=== PATIENT | female | born 1980 | race Hispanic/Latino ===

== ENCOUNTER 2020-07-09 21:45 | Emergency (ER) | payer SELFPAY ==
[2020-07-09 23:27] LABS: Basophils % (Auto) 0.5 % (0.0-1.8); Hemoglobin 12.8 gm/dl (10.1-14.3); Lymphocytes # (Auto) 1.1 K/mm3 (1.2-5.4); Lymphocytes % (Auto) 16.7 % (13.4-35.0); Mean Corpuscular HGB Conc 34 % (30-34); Mean Corpuscular Volume 91 fl (79-97); Monocytes # (Auto) 0.7 K/mm3 (0.0-0.8); Monocytes % (Auto) 10.8 % (0.0-7.3); Platelet Count 263 K/mm3 (140-440); Red Blood Count 4.19 M/mm3 (3.65-5.03); Red Cell Distribution Width 13.7 % (13.2-15.2)
[2020-07-09 23:54] LABS: Alanine Aminotransferase 293 units/L (7-56); Albumin 3.6 g/dL (3.9-5); Blood Urea Nitrogen 22 mg/dL (7-17); Hemolysis Index 6
[2020-07-09 23:59] LABS: BUN/Creatinine Ratio 55
--- NOTE | 2020-07-10 00:30 | XRay Report ---
CHEST 2 VIEWS INDICATION / CLINICAL INFORMATION: Chest pain. COMPARISON: None available. FINDINGS: SUPPORT DEVICES: None. HEART / MEDIASTINUM: The heart size and pulmonary vasculature are normal. The aorta is normal in ashok luis miguel. LUNGS / PLEURA: No significant pulmonary or pleural abnormality. No pneumothorax. ADDITIONAL FINDINGS: No significant additional findings. IMPRESSION: No acute findings. Signer Name: Gabriel Stephens MD Signed: 07/10/2020 12:26 AM Workstation Name: [id number]
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
[2020-07-10] MEDS: SULFAMETHOXAZOLE/TRIMETHOPRIM 800/160MG DS TAB PO SCH ×3 (01:42→22:00)
[2020-07-10 02:19] LABS: Amorphous Crystals,Urine Few; Bilirubin,Urine NEG (Negative); Blood,Urine LG (Negative); Color,Urine Yellow (Yellow); Mucus,Urine FEW /HPF
[2020-07-10 02:26] LABS: Amphetamine Screen,Urine PRESUMPTIVE POSITIVE; Benzodiazepines Screen,Urine PRESUMPTIVE NEGATIVE; Cannabinoid Screen,Urine PRESUMPTIVE POSITIVE; Cocaine Screen,Urine PRESUMPTIVE NEGATIVE; Methadone Screen,Urine PRESUMPTIVE NEGATIVE; Opiate Screen,Urine PRESUMPTIVE NEGATIVE
[2020-07-10] MEDS ORDERED: ALPRAZolam 1 MG TAB PO ONE ×2 (02:31→14:46)
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
--- NOTE | 2020-07-10 13:58 | Electrocardiograph Report ---
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
[2020-07-10] MEDS ORDERED: METOPROLOL TARTRATE 37.5 MG PO SCH (15:00)
[2020-07-10] MEDS ORDERED: METHIMAZOLE 10 MG PO SCH (15:00)
[2020-07-10] MEDS: METOPROLOL TARTRATE 25 MG TAB PO SCH ×2 (18:28→22:00)
[2020-07-10] MEDS: methIMAzole 5 MG TAB PO SCH ×2 (18:29→22:00)
[2020-07-10] MEDS ORDERED: ZIPRASIDONE MESYLATE 20 MG VIAL IM ONE ×2 (21:25→23:00)
[2020-07-11 09:24] VITALS: BP 114/84
[2020-07-11] MEDS ORDERED: LORazepam 1 MG TAB PO ONE (09:44)
[2020-07-11] MEDS: methIMAzole 5 MG TAB PO SCH (10:15)
[2020-07-11] MEDS: METOPROLOL TARTRATE 25 MG TAB PO SCH (10:16)
[2020-07-11] MEDS: SULFAMETHOXAZOLE/TRIMETHOPRIM 800/160MG DS TAB PO SCH (10:16)
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
== END 2020-07-11 15:29 | disposition home or self-care (01) ==
LOC: ED 21:45
DX: F15.129 Other stimulant abuse with intoxication, unspecified (principal); Z20.822 Contact with and (suspected) exposure to COVID-19; F17.200 Nicotine dependence, unspecified, uncomplicated; F41.9 Anxiety disorder, unspecified; Z98.890 Other specified postprocedural states; Z98.51 Tubal ligation status; Z88.1 Allergy status to other antibiotic agents; Z88.8 Allergy status to other drugs, medicaments and biological substances
CPT/HCPCS: 36415; 71046; 80053; 84484; 84703; 85025; 93005; 96372; 99285; J3486; U0003